=== PATIENT | male | born 1990 | race Caucasian/White ===

== ENCOUNTER 2021-04-15 09:46 | Emergency (ER) | payer OTHER ==
[~2021-04-15] VITALS: Ht 172.7 cm; Wt 60.8 kg
[2021-04-15 09:46] VITALS: BP 149/90
--- NOTE | 2021-04-15 09:51 | NUR ---
Patient off restraints from SERGIO huggins; cooperative without restraints at this time. Reoriented to situation
--- NOTE | 2021-04-15 09:55 | NUR ---
30 y/o M BIBA in custody of PD who reported to EMS that patient was walking in the middle of the street. Per EMS, patient was cooperative with PD on scene. EMS states patient began acting erratic and +hallucinations on scene, denies any drug or etoh use. A&O to name/. Unable to obtain history, allergies, chief complaint d/t patient presentation. Patient presents disshelved talking to self, difficult to reorient. HR 124 RR 31. Bed locked in lowest position, side rails x 2 for pt safety. PMH/Sx/Meds: Unable to obtain NKA
--- NOTE | 2021-04-15 09:58 | NUR ---
Patient given sandwich and water cup per request.
--- NOTE | 2021-04-15 10:15 | NUR ---
Dr. Brock is evaluating patient at bedside
--- NOTE | 2021-04-15 10:15 | NUR ---
Patient completed sandwich and water cup. Additional sandwich given per request.
--- NOTE | 2021-04-15 10:20 | NUR ---
Unsuccessful at reorientation to situation/place. Patient acting in bizzare behavior, flailing arms and shuffling in bed.
[2021-04-15] MEDS ORDERED: OLANZapine 5 MG ODT ONE (10:22)
[2021-04-15] MEDS ORDERED: LORazepam 1 MG TAB ONE (10:23)
[2021-04-15] MEDS: LORazepam 1 MG TAB PO ONE (10:28)
[2021-04-15] MEDS: OLANZapine 5 MG ODT PO ONE (10:29)
--- NOTE | 2021-04-15 11:12 | NUR ---
Patient asleep at this time. Morrow provided per request.
--- NOTE | 2021-04-15 12:07 | NUR ---
Patient resting in semi-fowlers position with blanket and jacket over him. Bed locked in lowest position, side rails x 2, call light in reach. site monitor in place.
[2021-04-15 13:18] VITALS: BP 138/84
--- NOTE | 2021-04-15 13:19 | NUR ---
Patient discharged with v/s stable. Written and verbal after care instructions given and explained. Patient verbalized understanding. Ambulatory with steady gait. All questions addressed prior to discharge. Advised to follow up with PMD.
== END 2021-04-15 13:19 | disposition home or self-care (01) ==
LOC: MED 09:46
DX: F29 Unspecified psychosis not due to a substance or known physiological condition (principal)
CPT/HCPCS: 99283; 99285